=== PATIENT | female | born 1960 ===

== ENCOUNTER 2020-06-11 05:32 | Day surgery (SDC) | payer OTHER | END 2020-06-11 10:50 | disposition home or self-care (01) | LOC: AMB-ENDOS 05:32 | PROVIDERS: ATTEND Colon & Rectal Surgery | DX: K62.89 Other specified diseases of anus and rectum (principal); K29.00 Acute gastritis without bleeding; K64.2 Third degree hemorrhoids; K44.9 Diaphragmatic hernia without obstruction or gangrene; K21.9 Gastro-esophageal reflux disease without esophagitis; K58.1 Irritable bowel syndrome with constipation; Z20.822 Contact with and (suspected) exposure to COVID-19 ==

== ENCOUNTER 2021-09-30 04:28 | Emergency (ER) | payer OTHER ==
[~2021-09-30] VITALS: Ht 157.5 cm; Wt 71.2 kg
== END 2021-09-30 18:01 | disposition home or self-care (01) ==
LOC: ER 04:28
DX: K57.92 Diverticulitis of intestine, part unspecified, without perforation or abscess without bleeding (principal); R10.32 Left lower quadrant pain
CPT/HCPCS: 36415; 74177; Q9965